=== PATIENT | male | born 1980 | race African-American/Black ===

== ENCOUNTER 2017-05-05 09:28 | Emergency (ER) | payer OTHER ==
[~2017-05-05] VITALS: Ht 185.4 cm; Wt 93.9 kg
[2017-05-05 09:40] VITALS: Ht 185.4 cm; Wt 93.9 kg
[2017-05-05 11:28] VITALS: BP 128/72
== END 2017-05-05 11:28 | disposition home or self-care (01) ==
LOC: ED 09:28
DX: G89.29 Other chronic pain (principal); M54.5 Low back pain
CPT/HCPCS: J1885